=== PATIENT | female | born 1975 | race Two or more races ===

== ENCOUNTER 2018-03-10 09:51 | Emergency (ER) | payer SELFPAY ==
[2018-03-10 10:04] VITALS: BP 105/76; PULSE 76; TEMP 98; BMI 25.4
--- NOTE | 2018-03-10 10:13 | PDOC ---
History of Present Illness - General History Source: Patient - History of Present Illness Timing/Duration: reports: getting worse, intermittent Quality: reports: severe Abdominal Pain Onset Location: reports: epigastric <Arianna StonerLevi - Last Filed: 03/10/18 13:53> <Lissette Cardona - Last Filed: 03/13/18 07:19> - General Chief Complaint: Pain, Acute Stated Complaint: ABD PAIN Time Seen by Provider: 03/10/18 10:07 Past History - Past Medical History COPD: No - Immunization History Immunization Up to Date: Yes - Suicide/Smoking/Psychosocial Hx Smoking History: Never smoked Hx Alcohol Use: No Drug/Substance Use Hx: No <Lyla Stoner - Last Filed: 03/10/18 13:53> <Lissette Cardona - Last Filed: 03/13/18 07:19> - Past Medical History Allergies/Adverse Reactions: Allergies Allergy/AdvReac Type Severity Reaction Status Date / Time ibuprofen [From Advil] Allergy Swelling Verified 03/10/18 10:52 Home Medications: Ambulatory Orders Ranitidine HCl [Zantac] 150 mg PO BID #20 tablet 03/10/18 Review of Systems - Review of Systems Constitutional: No: Chills, Fever Respiratory: No: Shortness of Breath Cardiac (ROS): No: Chest Pain ABD/GI: Yes: Nausea. No: Constipated, Diarrhea, Rectal Bleeding, Vomiting, Tarry Stools : No: Dysuria <HeringtonNatalieAriannaLevi Last Filed: 03/10/18 13:53> *Physical Exam - Vital Signs Last Vital Signs Temp Pulse Resp BP Pulse Ox 98.0 F 76 16 105/76 99 03/10/18 10:00 03/10/18 10:00 03/10/18 10:00 03/10/18 10:00 03/10/18 10:00 - Physical Exam General Appearance: Yes: Appropriately Dressed, Mild Distress <Lyla Stoner - Last Filed: 03/10/18 13:53> - Vital Signs Last Vital Signs Temp Pulse Resp BP Pulse Ox 98.0 F 76 16 105/76 99 03/10/18 10:00 03/10/18 10:00 03/10/18 10:00 03/10/18 10:00 03/10/18 10:00 <Lissette Cardona - Last Filed: 03/13/18 07:19> Moderate Sedation - Procedure Monitoring Vital Signs: Procedure Monitoring Vital Signs Temperature 98.0 F 03/10/18 10:00 Pulse Rate 76 03/10/18 10:00 Respiratory Rate 16 03/10/18 10:00 Blood Pressure 105/76 03/10/18 10:00 O2 Sat by Pulse Oximetry (%) 99 03/10/18 10:00 <Lyla Stoner - Last Filed: 03/10/18 13:53> - Procedure Monitoring Vital Signs: Procedure Monitoring Vital Signs Temperature 98.0 F 03/10/18 10:00 Pulse Rate 76 03/10/18 10:00 Respiratory Rate 16 03/10/18 10:00 Blood Pressure 105/76 03/10/18 10:00 O2 Sat by Pulse Oximetry (%) 99 03/10/18 10:00 <Lissette Cardona - Last Filed: 03/13/18 07:19> ED Treatment Course - LABORATORY CBC & Chemistry Diagram: 03/10/18 10:36 03/10/18 10:36 <Lyla Stoner - Last Filed: 03/10/18 13:53> - LABORATORY CBC & Chemistry Diagram: 03/10/18 10:36 03/10/18 10:36 - ADDITIONAL ORDERS Additional order review: 03/10/18 10:36 RBC 3.85 MCV 90.6 MCHC 34.8 RDW 13.1 MPV 10.1 Neutrophils % 88.1 H Lymphocytes % 8.1 Monocytes % 3.4 L Eosinophils % 0.1 Basophils % 0.3 - Medications Given in the ED: ED Medications Discontinued Medications Generic Name Dose Route Start Last Admin Trade Name Freq PRN Reason Stop Dose Admin Acetaminophen 1,000 mg 03/10/18 11:58 03/10/18 12:24 Ofirmev Injection - IVPB 03/10/18 11:59 1,000 mg ONCE ONE Administration Al Hydroxide/Mg Hydroxide 30 ml 03/10/18 10:24 03/10/18 10:54 Mylanta Oral Suspension - PO 03/10/18 10:25 30 ml ONCE ONE Administration Famotidine/Sodium Chloride 20 mg in 50 mls @ 100 mls/hr 03/10/18 10:24 10:54 Pepcid 20 Mg Premixed Ivpb - IVPB 03/10/18 10:53 100 mls/hr ONCE ONE Administration Sodium Chloride 1,000 mls @ 1,000 mls/hr 03/10/18 10:23 03/10/18 10:53 Normal Saline - IV 03/10/18 11:22 1,000 mls/hr ASDIR STA Administration Ondansetron HCl 4 mg 03/10/18 10:24 03/10/18 10:54 Zofran Injection IVPUSH 03/10/18 10:25 4 mg ONCE ONE Administration <Lissette Cardona - Last Filed: 03/13/18 07:19> Medical Decision Making - Medical Decision Making 03/10/18 10:13 43 yo F, no sig hx, here w/ epigastric pain. Patient states for the past week has had intermittent epigastric pain, unable to describe, worse after eating and worsened last night. Reports nausea, no vomiting, change in bowel movements , melena, bright blood per rectum, fever or chills. Not taking anything for pain. No history of similar pain in the past. Denies history of gallstones. Denies excessive ETOH and NSAID use See exam Epigastric pain Possible gastritis/GERD vs biliary, less likely pancreatitis, UTI/pyelo or cardiac -trial of GI cocktail -labs -reassess 03/10/18 11:58 CBC w/ wbc of 12, chem unremarkable, UA pending. Pt continues to complain of severe upper abdominal pain despite GI cocktail. Will continue to manage pain and get ultrasound at this time 03/10/18 14:00 US with no e/o acute chloe. Patient reports feeling significantly better and was able to tolerate po here. Will dc with pain control. Patient instructed to follow-up with her PMD if symptoms continue for possible GI referral <Lyla Stoner - Last Filed: 03/10/18 13:53> - Medical Decision Making The patient was seen and evaluated in conjunction with midlevel provider under my direct supervision, ancillary studies were reviewed. I agree with the plan as outlined by GAGE Stoner. HPI, workup/dispo as outlined. 03/13/18 07:19 <Lissette Cardona - Last Filed: 03/13/18 07:19> *DC/Admit/Observation/Transfer <Lyla Stoner - Last Filed: 03/10/18 13:53> <Lissette Cardona - Last Filed: 03/13/18 07:19> Diagnosis at time of Disposition: Epigastric pain - Discharge Dispostion Disposition: HOME Condition at time of disposition: Improved - Prescriptions Prescriptions: Ranitidine HCl [Zantac] 150 mg PO BID #20 tablet - Referrals Referrals: Alvino Anne MD [Primary Care Provider] - - Patient Instructions Printed Discharge Instructions: Gastritis Additional Instructions: La causa de patsy sntomas es posiblemente gastritis o ERGE. Patsy laboratorios y ultrasonido fueron normales. [place]Bishop los analgsicos segn sea necesario y si los sntomas persisten, sae un seguimiento con roth PMD para samantha posible derivacin GI Print Language: TOGOLESE - Post Discharge Activity Forms/Work/School Notes: Back to Work
[2018-03-10] MEDS ORDERED: SODIUM CHLORIDE 1,000 ML IV STA (10:23)
[2018-03-10] MEDS ORDERED: MAG HYDROX/AL HYDROX/SIMETH 30 ML UNIT-DOSE CUP PO ONE (10:24)
[2018-03-10] MEDS ORDERED: ONDANSETRON 4 MG/2 ML VIAL IVPUSH ONE (10:24)
[2018-03-10] MEDS ORDERED: FAMOTIDINE 20 MG/50 ML IVPB 20 MG/50 ML MG IVPB ONE (10:24)
[2018-03-10 11:04] LABS: BASO % 0.3 % (0-2.0); EOS % 0.1 % (0-4.5); HEMATOCRIT 34.9 % (32.4-45.2); HEMOGLOBIN 12.1 GM/dL (10.7-15.3); LYMPH % 8.1 % (8-40); MCH 31.5 pg (25.7-33.7); MCHC 34.8 g/dl (32.0-36.0); MEAN CELL VOLUME 90.6 fl (80-96); MEAN PLT VOLUME 10.1 fl (7.5-11.1); MONO % 3.4 % (3.8-10.2); NEUT % 88.1 % (42.8-82.8); PLATELET COUNT 272 K/MM3 (134-434); RBC 3.85 M/mm3 (3.60-5.2); RDW 13.1 % (11.6-15.6); WHITE BLOOD COUNT 12.7 K/mm3 (4.0-10.0)
[2018-03-10 11:25] LABS: ALBUMIN 3.6 g/dl (3.4-5.0); ALK PHOS 58 U/L (45-117); ANION GAP 8 MMOL/L (8-16); BILIRUBIN,TOTAL 0.3 mg/dL (0.2-1); BLOOD UREA NITROGEN 9 mg/dL (7-18); CALCIUM 8.9 mg/dL (8.5-10.1); CHLORIDE 107 mmol/L (98-107); CO2 23 mmol/L (21-32); CREATININE 0.5 mg/dL (0.55-1.3); GLUCOSE,RANDOM 101 mg/dL (74-106); LIPASE 107 U/L (73-393); SGOT/AST 17 U/L (15-37); SGPT/ALT 22 U/L (13-61); SODIUM 138 mmol/L (136-145); TOT PROT 6.8 g/dl (6.4-8.2)
[2018-03-10] MEDS ORDERED: ACETAMINOPHEN 1000 MG/100 ML VIAL (NON FORMULARY) IVPB ONE (11:58)
[2018-03-10] MEDS ORDERED: ACETAMINOPHEN INJECTION 100 ML IVPB ONE (12:00)
[2018-03-10 12:09] LABS: HCG,QUALITATIVE URINE Negative
[2018-03-10 12:30] LABS: URINE APPEARANCE CLEAR; URINE BILIRUBIN NEGATIVE (<2.0 mg/dL); URINE COLOR LTYELLOW; URINE GLUCOSE (UA) NEGATIVE (NEGATIVE); URINE KETONE NEGATIVE (NEGATIVE); URINE LEUK ESTERASE NEGATIVE (NEGATIVE); URINE NITRITE NEGATIVE (NEGATIVE); URINE PROTEIN NEGATIVE (NEGATIVE); URINE UROBILINOGEN NEGATIVE mg/dL (0.2-1.0)
== END 2018-03-10 14:09 | disposition home or self-care (01) ==
LOC: JER 09:51
PROC: 3E0337Z Introduction of Electrolytic and Water Balance Substance into Peripheral Vein, Percutaneous Approach (ICD-10-PCS; principal; 2018-03-10)
PROC: 3E033GC Introduction of Other Therapeutic Substance into Peripheral Vein, Percutaneous Approach (ICD-10-PCS; 2018-03-10)
PROC: 3E033NZ Introduction of Analgesics, Hypnotics, Sedatives into Peripheral Vein, Percutaneous Approach (ICD-10-PCS; 2018-03-10)
PROC: 3E033GC Introduction of Other Therapeutic Substance into Peripheral Vein, Percutaneous Approach (ICD-10-PCS; 2018-03-10)
DX: R10.13 Epigastric pain (principal)
CPT/HCPCS: 36415; 76705-TC; 80053; 81003; 83690; 84703; 85025; 99282-25; J0131; J7030